=== PATIENT | female | born 1985 | race Hispanic/Latino ===

== ENCOUNTER 2020-10-13 20:00 | Emergency (ER) | payer MEDICAID ==
[~2020-10-13] VITALS: Ht 149.9 cm; Wt 58.5 kg
[2020-10-13 20:28] LABS: BASOPHILS % (AUTO) 0.4 % (0.0-5.0); EOSINOPHILS % (AUTO) 0.2 % (0.0-8.0); HEMATOCRIT 35.5 % (36-48); LYMPHOCYTES % (AUTO) 11.9 % (21.0-51.0); MEAN CORPUSCULAR HEMOGLOBIN 24.3 pg (27.0-33.0); MEAN CORPUSCULAR HGB CONC 31.3 g/dL (32.0-36.0); MEAN CORPUSCULAR VOLUME 77.7 fL (79-99); NEUTROPHILS % (AUTO) 82.3 % (40.0-77.0); PLATELET COUNT (AUTO) 333 K/uL (130-400); RED BLOOD CELL COUNT(AUTO) 4.57 MIL/uL (4.00-5.50)
[2020-10-13 20:48] LABS: CREATININE 0.7 mg/dL (0.5-1.5); POTASSIUM 3.7 mmol/L (3.5-5.1)
[2020-10-13 20:50] LABS: PROTHROMBIN TIME 10.9 SEC (9.6-11.6)
[2020-10-13 20:52] LABS: B-TYPE NATRIURETIC PEPTIDE 12 pg/mL (0-100)
[2020-10-13 20:59] VITALS: BP 106/74
[2020-10-13 21:01] LABS: ALBUMIN 3.6 g/dL (3.5-5.0); BILIRUBIN,TOTAL 0.1 mg/dL (0.2-1.0); MAGNESIUM 1.9 mg/dL (1.80-2.40); THYROID STIMULATING HORMONE 1.32 uIU/mL (0.36-3.74); TOTAL PROTEIN, SERUM 7.9 g/dL (6.0-8.3)
[2020-10-13 21:11] LABS: HCG,QUAL RESULT NEGATIVE (NEGATIVE)
[2020-10-13 21:14] LABS: AMPHET/METH SCREEN,URINE NEGATIVE (NEGATIVE); BARBITURATE SCREEN, URINE NEGATIVE (NEGATIVE); BENZODIAZEPINES SCREEN,URINE NEGATIVE (NEGATIVE); CANNABINOID SCREEN,URINE NEGATIVE (NEGATIVE); COCAINE SCREEN,URINE NEGATIVE (NEGATIVE); OPIATE SCREEN,URINE NEGATIVE (NEGATIVE); PHENCYCLIDINE SCREEN,URINE NEGATIVE (NEGATIVE)
[2020-10-13] MEDS ORDERED: ACETAMINOPHEN 325 MG TAB PO ONE ×2 (21:45→22:17)
[2020-10-13] MEDS ORDERED: 0.9%NACL 1000ML 1,000 ML IV ONE ×2 (21:45→22:17)
[2020-10-13 22:38] VITALS: BP 106/65
[2020-10-14 00:53] VITALS: BP 105/59
== END 2020-10-14 01:04 | disposition home or self-care (01) ==
LOC: EDH 20:00
DX: R00.2 Palpitations (principal); R00.0 Tachycardia, unspecified; R50.9 Fever, unspecified; R07.89 Other chest pain; R42 Dizziness and giddiness; Z88.0 Allergy status to penicillin
CPT/HCPCS: 36415; 71045; 80053; 80305; 81025; 82550; 83735; 83880; 84443; 84484; 85025; 85378; 85610; 93005; 96360; 99285; J7030